=== PATIENT | male | born 1995 | race Caucasian/White ===

== ENCOUNTER 2020-05-28 09:11 | Emergency (ER) | payer OTHER ==
[~2020-05-28] VITALS: Ht 172.7 cm; Wt 80.4 kg
[2020-05-28 09:12] VITALS: BP 120/76
[2020-05-28] MEDS ORDERED: FLON1SPR NARES (09:46)
[2020-05-28] MEDS ORDERED: HM S0.65 NARES (09:46)
[2020-05-28] MEDS ORDERED: CETI-24 PO (09:46)
== END 2020-05-28 09:54 | disposition home or self-care (01) ==
LOC: M ED 09:11
DX: J00 Acute nasopharyngitis [common cold] (principal)

== ENCOUNTER 2021-12-23 18:17 | Emergency (ER) | payer OTHER ==
[~2021-12-23] VITALS: Ht 172.7 cm; Wt 81.8 kg
[~2021-12-23 18:17] MED LIST: CETI-24 PO; FLON1SPR NARES; HM S0.65 NARES
[2021-12-23 18:22] VITALS: BP 157/97
== END 2021-12-23 20:04 | disposition home or self-care (01) ==
LOC: M ED 18:17
DX: J02.9 Acute pharyngitis, unspecified (principal); U07.1 COVID-19